=== PATIENT | male | born 1955 | race Caucasian/White ===

== ENCOUNTER 2023-08-16 21:20 | Emergency (ER) | payer MEDICARE, SELFPAY ==
[2023-08-16 21:38] VITALS: BP 135/84
--- NOTE | 2023-08-16 22:31 | ED.GENMED ---
History of Present Illness
General
Chief Complaint: Chest Problem
Source: patient
Time Seen by Provider: 08/16/23 22:21
Travel History
Have you had any contact with someone who has COVID-19?: No
Do you have any symptoms of coronavirus? Fever > 100 degrees, chills, cough, shortness of breath, sore throat, loss of taste or smell, muscle aches, or headache?: No
History of Present Illness
History of Present Illness:
68-year-old male presents to the emergency room complaining of pain on his right thorax. Patient states the pain is been present for the past 2 weeks to maybe even a month. Certain movements make it worse. There are times it does not bother him
at all and times when it is more severe. He denies shortness of breath. The pain is not worse with deep inspiration but rather with rotation of the thorax. Patient states he has had pleurisy in the past and what he is experiencing today is much
different. He denies any recent periods of immobilization or travel. Patient patient has noticed that ibuprofen helps. He was able to go to the gym a couple days ago after taking ibuprofen.
Phy Exam
Physical Exam
Physical Exam:
General: Awake, Alert, Oriented X3. No acute distress.
Vitals: unremarkable
Head: Atraumatic
Eyes: Pupils equal, EOMI
Throat: Airway intact, no exudates
Neck: Trachea midline
Thorax: I am unable to exacerbate the pain with palpation. However when I move the patient through rotational movements of the thorax he does experience some pain though not as severe as he had this morning.
Lungs: Clear and equal b/l
Heart: Regular rate, no murmurs
Abd: Soft, Nontender, No pulsatile mass
Neuro: Nonfocal
Skin: Warm, dry, no rash
Extremities: pulses equal b/l, no edema
Course
Orders/Labs/Results
Orders:
Orders
08/16/23 21:41
EKG [Electrocardiogram (*1)] Urgent
Reason for Study: Chest Pain
EKG- Treatment ONCE
08/16/23 22:30
CR Chest - 2 Views Urgent
Comment:
Reason For Exam: Right lateral thorax pain
Vital Signs
Initial and Last Documented VS:
Initial Vital Signs
Temp Pulse Resp BP Pulse Ox
97.7 F 61 14 135/84 96
08/16/23 21:38 08/16/23 21:38 08/16/23 21:38 08/16/23 21:38 08/16/23 21:38
Last Documented Vital Signs
Temp Pulse Resp BP Pulse Ox
97.7 F 54 14 130/76 96
08/16/23 21:38 08/16/23 22:44 08/16/23 22:44 08/16/23 22:44 08/16/23 22:44
MDM/Problems Addressed
Differential Diagnosis Includes:
Muscle strain, pneumothorax, rib fracture
MDM/Problems Addressed:
Chest x-ray shows no acute abnormalities. Overall presentation consistent with muscle strain.
*Radiology
Radiology exam reviewed: preliminary read by ED provider (Personally reviewed the patient's chest x-ray and see no acute disease)
*Pulse Oximetry
Patient hypoxic: no
*EKG
Interpreted by ED Provider?: Yes
Interpretation: abnormal
Heart Rate: 58
Rate: bradycardiac
Rhythm: sinus
[place]: normal axis
QRS Pattern: normal QRS
Ischemia: no ischemia
*Cadet Deck Interpretation
Rate: normal
Interpretation: normal
Heart Rate: 58
Rhythm: sinus
*Critical Care Note
Total Time (30-74mins, 75-104mins- exclusive of procedures): Not Applicable
ED Attending Note
-
Portions of this chart may have been created with voice recognition software.� Occasional wrong word or��sound alike� substitutions may have occurred due to the inherent limitations of voice recognition software.
Discharge Plan
Departure
Patient Disposition: Home (Routine Discharge)
Date of Disposition: 08/16/23
Time of Disposition: 23:27
Patient with high blood pressure during this ER visit?: No
Condition: Good
Discharge Problem:
Acute thoracic myofascial strain
Instructions: Muscle Strain ED
Prescriptions:
No Action
pravastatin 40 mg Tablet
40 mg PO QPM
amlodipine 10 mg Tablet
10 mg PO DAILY
cholecalciferol (vitamin D3) [Vitamin D3] 25 mcg (1,000 unit) Tablet
25 mcg PO DAILY
Co Q-10
1 tab PO DAILY
Referrals:
Sherice Yousif MD [Family Provider] -
Interventions
Interventions:
*Risk Screen - Suicide Last Done: 08/16/23 21:38
*General Assessment Last Done: 08/16/23 21:38
*Neglect/Abuse Screening Last Done: 08/16/23 21:38
*ED COVID-19 Vaccine History Last Done: 08/16/23 22:44
*Nursing Disposition Last Done: 08/16/23 23:45
ED- Pulmonary Assessment Last Done: 08/16/23 22:44
Discharge Date and Time
Discharge Date/Time: 08/16/23 23:45
Print Language: LEBANESE
[2023-08-16 22:44] VITALS: BP 130/76; BMI 29.1
== END 2023-08-16 23:45 | disposition home or self-care (01) ==
LOC: EMR 21:20
PROVIDERS: EMERGENCY PHYSICIAN Emergency Medicine; FAMILY PHYSICIAN Family Medicine
DX: S29.012A Strain of muscle and tendon of back wall of thorax, initial encounter (principal); X58.XXXA Exposure to other specified factors, initial encounter
CPT/HCPCS: 99283; 71046; 93005

== ENCOUNTER 2023-11-30 11:50 | Emergency (ER) | payer MEDICARE, SELFPAY ==
[2023-11-30 11:59] VITALS: BMI 29.4
[2023-11-30 12:08] VITALS: BP 153/81
--- NOTE | 2023-11-30 12:14 | ED.GENMED ---
History of Present Illness
General
Chief Complaint: Chest Pain
Time Seen by Provider: 11/30/23 12:14
History of Present Illness
History of Present Illness:
HPI: Patient presents with chest discomfort. It is located in the far lateral aspect of the right side of the chest. He does not have abdominal pain. He described the pain as a burning sensation for which she thought it was heartburn and Rolaids
did help yesterday. The pain persisted and worsens with position changes. He does not have exertional symptoms. He had a similar episode about 3 months ago which was self-limited.
EXAM:
GENERAL: Well appearing in minimal distress
HEENT: Moist oral mucosa
CARDIOVASCULAR: No murmurs, normal heart rate, regular rhythm, No chest wall tenderness however when he flexes and twist the torso he has markedly worsen pain
PULMONARY: No respiratory distress, breath sounds are clear and equal
ABDOMEN: Soft with no peritoneal signs, no tenderness
NEUROLOGIC: Excellent strength all extremities, no coordination deficits
PSYCHIATRIC: Appropriate mental status, normal insight and judgement
EXTREMITIES: Nontender, no edema, moves all extremities equally
SKIN: No rash, no lesions
TIME OF INITIAL ENCOUNTER: 12:30 PM
NUMBER AND COMPLEXITY OF PROBLEMS ADDRESSED AT THE ENCOUNTER
� Chronic conditions affecting care: No history of coronary disease; hyperlipidemia, high blood pressure
� Acute Exacerbation and/or Progression of Chronic Illness: This is an acute but recurring problem
� Differential Diagnosis includes: Suspect musculoskeletal chest wall pain, pleurisy, costochondritis, highly doubt ACS
AMOUNT AND/OR COMPLEXITY OF DATA TO BE REVIEWED AND ANALYZED
� I performed an independent evaluation of and my interpretation is:
EKG: Sinus 58, normal axis, T wave flattening in aVL only but otherwise no acute abnormality, of note this is very similar in appearance to the EKG from 08/16/2023
CT:
X-rays:
Laboratory Studies: CBC normal, chemistries unremarkable, troponin is less than 0.012, lipase is elevated at 611
Other:
� Review of other/old records: I reviewed the EKG from 08/16/2023
� Clinical information was obtained by an independent historian: None needed
� Prescriptions/Medications Considered but not given:
� Further testing considered but not performed: Considered x-ray however the patient had a similar episode this past July and with a similar pain at that time, he had a chest x-ray that was unremarkable
RISK OF COMPLICATIONS AND/OR MORBIDITY OR MORTALITY OF PATIENT MANAGEMENT
� Social determinants of health affecting care: Lives at home
� Discussion with other providers:
� Escalation of care including admission/observation vs risk of discharge considered: On reassessment at 2 PM, the patient has no epigastric pain. He had no nausea or vomiting. Therefore doubt pancreatitis despite slight
elevation of the lipase. His troponin is negative and his symptoms are more consistent with a musculoskeletal/noncardiac etiology. However this is his second visit this year regarding chest discomfort therefore we will have him follow-up
Marito as he has seen many years ago. He appears very well at time of discharge.
Phy Exam
Physical Exam
Physical Exam:
See HPI
Scores
Heart Score for Chest Pain Patients
STEMI patient?: Not applicable
Course
Orders/Labs/Results
Orders:
Orders
11/30/23 11:58
EKG [Electrocardiogram (*1)] Urgent
Reason for Study: Chest Pain
11/30/23 11:59
EKG- Treatment ONCE
11/30/23 12:20
Complete Blood Count/With Diff Urgent
Comprehensive Metabolic Panel Urgent
Lipase Urgent
Comment: ADD ON
Troponin I Urgent
11/30/23 12:28
Add On- LAB Urgent
Tests Added?: lipase
11/30/23 12:33
Ketorolac [Toradol] 15 mg IV NOW STA
Abnormal Lab Results
11/30/23
12:20
Lymphocytes % 20.0 L %
(20.5-51.1)
Carbon Dioxide 31 H mmol/L
(22-30)
Glucose 108 H mg/dl
(70-99)
Lipase 611 H U/L
(23-300)
11/30/23 12:20
11/30/23 12:20
Vital Signs
Initial and Last Documented VS:
Initial Vital Signs
Temp Pulse Resp BP Pulse Ox
98.2 F 60 16 153/81 98
11/30/23 12:08 11/30/23 12:08 11/30/23 12:08 11/30/23 12:08 11/30/23 12:08
Last Documented Vital Signs
Temp Pulse Resp BP Pulse Ox
98.2 F 88 16 153/81 98
11/30/23 12:08 11/30/23 13:34 11/30/23 12:08 11/30/23 12:08 11/30/23 12:08
*Critical Care Note
Total Time (30-74mins, 75-104mins- exclusive of procedures): Not Applicable
ED Attending Note
-
Portions of this chart may have been created with voice recognition software.� Occasional wrong word or��sound alike� substitutions may have occurred due to the inherent limitations of voice recognition software.
Discharge Plan
Departure
Prescriptions:
No Action
pravastatin 40 mg Tablet
40 mg PO QPM
amlodipine 10 mg Tablet
10 mg PO DAILY
cholecalciferol (vitamin D3) [Vitamin D3] 25 mcg (1,000 unit) Tablet
25 mcg PO DAILY
Co Q-10
1 tab PO DAILY
Referrals:
Sherice Yousif MD [Family Provider] -
Interventions
Interventions:
*Risk Screen - Suicide Last Done: 11/30/23 11:59
*General Assessment Last Done: 11/30/23 11:59
*Neglect/Abuse Screening Last Done: 11/30/23 11:59
ED- Fall Risk Assessment Last Done: 11/30/23 11:59
ED- Cardiac Assessment Last Done: 11/30/23 11:59
Discharge Date and Time
Print Language: BAHRAINI
[2023-11-30 12:38] LABS: % Basophils 1.1 % (0-2); % Eosinophils 2.5 % (0-6); % Immature Granulocytes 0.3 % (0-0.5); % Monocytes 8.2 % (1.7-9.3); % Neutrophils 67.9 % (42.2-75.2); Absolute Basophils 0.1 10^3/uL (0-0.2); Absolute Eosinophils 0.2 10^3/uL (0-0.7); Absolute Lymphocytes 1.5 10^3/uL (1.2-3.4); Absolute Monocytes 0.6 10^3/uL (0.1-0.6); Hematocrit 41.2 % (39.0-52.0); Hemoglobin 13.9 g/dL (13.0-18.0); Mean Corp Hgb Conc. 33.7 g/dL (33.0-37.0); Mean Corpuscular Hgb 29.3 pg (27.0-31.0); Mean Corpuscular Volume 86.9 fL (80.0-94.0); Mean Platelet Volume 9.5 fL (7.4-10.4); Nucleated Red Blood Cells % 0 % (-); Platelet Count 277 10^3/uL (130-400); Red Blood Cell Count 4.74 10^6/uL (4.70-6.10); White Blood Cell Count 7.3 10^3/uL (4.8-10.8)
[2023-11-30 12:59] LABS: ALT (SGPT) 15 U/L (0-50); AST (SGOT) 22 U/L (17-59); Albumin 4.6 g/dl (3.5-5.0); Alkaline Phosphatase 64 U/L (38-126); Blood Urea Nitrogen 14 mg/dl (9-20); Calcium 9.3 mg/dl (8.4-10.2); Carbon Dioxide 31 mmol/L (22-30); Chloride 100 mmol/L (98-107); Glucose 108 mg/dl (70-99); Lipase 611 U/L (23-300); Potassium 4.4 mmol/L (3.5-5.1); Sodium 141 mmol/L (135-145); Total Bilirubin 0.8 mg/dl (0.2-1.3); Total Protein 7.1 g/dl (6.3-8.2); eGFR > 60.00
[2023-11-30 13:10] LABS: Troponin I < 0.012 ng/ml
[2023-11-30] MEDS: TORADOL 15 MG IV (13:14)
[2023-11-30 13:34] VITALS: BP 139/77
[2023-11-30 14:00] VITALS: BP 139/77
== END 2023-11-30 14:00 | disposition home or self-care (01) ==
LOC: EMR 11:50
PROVIDERS: EMERGENCY PHYSICIAN Emergency Medicine; FAMILY PHYSICIAN Family Medicine
DX: R07.89 Other chest pain (principal); R20.8 Other disturbances of skin sensation; Z88.0 Allergy status to penicillin
CPT/HCPCS: 99284; 96374; 80053; 83690; 84484; 85025; 93005

== ENCOUNTER → 2023-12-13 11:08 | Outpatient (REF) | payer MEDICARE, SELFPAY | LOC: RCS 11:08 | PROVIDERS: ATTENDING PHYSICIAN Internal Medicine; FAMILY PHYSICIAN Family Medicine | DX: R07.9 Chest pain, unspecified (principal); I10 Essential (primary) hypertension; R94.39 Abnormal result of other cardiovascular function study | CPT/HCPCS: 93306 ==

== ENCOUNTER → 2023-12-20 11:10 | Outpatient (REF) | payer MEDICARE, SELFPAY | LOC: DHCBC/DCA 11:10 | PROVIDERS: ATTENDING PHYSICIAN Internal Medicine; FAMILY PHYSICIAN Family Medicine | DX: R07.9 Chest pain, unspecified (principal); I10 Essential (primary) hypertension; R94.39 Abnormal result of other cardiovascular function study | CPT/HCPCS: 78452; 93017; A9500 ==

== ENCOUNTER → 2025-01-11 17:21 | Outpatient (REF) | payer MEDICARE, SELFPAY | LOC: RAD 17:21 | DX: M54.50 Low back pain, unspecified (principal) | CPT/HCPCS: 72110 ==